=== PATIENT | male | born 1980 | race Caucasian/White ===

== ENCOUNTER 2021-02-20 06:43 | Emergency (ER) | payer OTHER ==
[~2021-02-20] VITALS: Ht 175.3 cm; Wt 70.3 kg
[2021-02-20 06:44] VITALS: BP 128/68
--- NOTE | 2021-02-20 06:48 | NUR ---
[facility] AT [facility].
[2021-02-20 07:02] VITALS: BP 128/68
--- NOTE | 2021-02-20 07:02 | NUR ---
Patient discharged with v/s stable. Written and verbal after care instructions given and explained. Patient verbalized understanding. Ambulatory with steady gait. All questions addressed prior to discharge. Advised to follow up with PMD.
--- NOTE | 2021-02-20 07:02 | NUR ---
PATIENT BIB [employer] [place] [employer]. PATIENT EXAMINED BY DR. DALE. PATIENT MEDICALLY CLEARED AND RELEASED IN CUSTODY IN STABLE CONDITION. ORIGINAL PRE-BOOK FORM GIVEN TO OFFICER [facility] #[id number].
== END 2021-02-20 07:02 ==
LOC: MED 06:43
DX: Z02.89 Encounter for other administrative examinations (principal); Z88.6 Allergy status to analgesic agent; Z88.2 Allergy status to sulfonamides; Z88.8 Allergy status to other drugs, medicaments and biological substances; V98.8XXA Other specified transport accidents, initial encounter; Y93.89 Activity, other specified; Y92.89 Other specified places as the place of occurrence of the external cause; Y99.8 Other external cause status
CPT/HCPCS: 99283